=== PATIENT | female | born 1995 | race African-American/Black ===

== ENCOUNTER 2018-05-01 19:51 | Emergency (ER) | payer BC ==
[~2018-05-01] VITALS: Ht 160 cm; Wt 45.4 kg
--- NOTE | ~2018-05-01 | EKG ---
[place] [address] [facility] [place] [address] ELECTROCARDIOGRAM REPORT Name: WANDA HARPER Room #: [id number] Admission: 05/01/18 Attend Phys: Discharge: Date of : [birth year] Report #: [id number] THIS REPORT FOR: //name// [facility] ED Test Date: 2018-05-01 Test Time: 20:19:16 Pat Name: WANDA AMBROCIO Department: Room: Gender: F Combiner: María HESS : 1995 Requested By: Kira Lora Order Number: [id number] MD: Sudheer Matthews Measurements Intervals Gary Rate: 84 P: 86 IA: 152 QRS: 67 QRSD: 73 T: 0 QT: 329 QTc: 389 Interpretive Statements Sinus rhythm Borderline T wave abnormalities Compared to ECG 12/30/2016 17:00:05 T-wave abnormality now present Electronically Signed On 05-02-2018 14:30:31 CDT by Sudheer Matthews [email or web address] <ELECTRONICALLY SIGNED> By: Sudheer Matthews MD 05/02/18 1430 2019 18 Sudheer Matthews MD /JULIO CESAR
[~2018-05-01 19:51] MED LIST: NOHOMEMEDICATIONS; PEPCID40 MG PO; TRAMADOL 50 MG50 MG PO; ZOFRAN ODT4 MG DISSOLVE
[2018-05-01 20:55] LABS: URINE BLOOD NEGATIVE (Negative); URINE CLARITY CLEAR; URINE COLOR YELLOW; URINE GLUCOSE-RANDOM* NEGATIVE (Negative); URINE KETONES 1+ (Negative); URINE LEUKOCYTES-REFLEX NEGATIVE (Negative); URINE NITRITE-REFLEX NEGATIVE (Negative); URINE PROTEIN (DIPSTICK) TRACE (Negative); URINE SPECIFIC GRAVITY >= 1.030 (1.005-1.035); URINE UROBILINOGEN 0.2 E.U./dl (0.2-1.0)
[2018-05-01 20:59] LABS: ICTOTEST (BILI CONFIRMATORY) Negative (Negative); URINE BILIRUBIN NEGATIVE (Negative)
[2018-05-01 21:04] LABS: AMP/METHAMP Negative (Negative); BARBITURATES Negative (Negative); BENZODIAZEPINES Negative (Negative); COCAINE Negative (Negative); METHADONE Negative (Negative); OPIATES Negative (Negative); PCP Negative (Negative)
[2018-05-01 22:24] LABS: ABSOLUTE NEUTROPHILS 4.7 thou/uL (1.4-8.2); BASOPHILS 0.4 % (0.0-2.0); EOSINOPHILS 0.8 % (0.0-3.0); HEMATOCRIT 40.8 % (37.0-47.0); LYMPHOCYTES 17.5 % (24.0-44.0); MCH 31.5 pg (26.0-34.0); MCHC 34.3 g/dL (28.0-37.0); MCV 91.8 fL (80.0-100.0); MONOCYTES 8.6 % (1.0-8.0); PLATELET COUNT 156 thou/uL (150-400); POLYS 72.7 % (36.0-66.0); RBC 4.45 mil/uL (4.20-5.00); RDW 12.5 % (10.5-14.5); WBC 6.5 thou/uL (4.0-11.0)
[2018-05-01 22:34] LABS: CALCIUM 9.3 mg/dL (8.5-10.1); CREATININE 0.8 mg/dL (0.6-1.0); POTASSIUM 3.8 mmol/L (3.5-5.1)
[2018-05-01 22:40] LABS: ALBUMIN 4.4 g/dL (3.4-5.0); TOTAL BILIRUBIN 0.4 mg/dL (<0.1-1.0); TOTAL PROTEIN 8.2 g/dL (6.4-8.2)
[2018-05-01 23:50] VITALS: BP 126/80
== END 2018-05-02 06:58 | disposition home or self-care (01) ==
LOC: ER 19:51
PROVIDERS: Nurse Practitioner Family
DX: B34.9 Viral infection, unspecified (principal); R55 Syncope and collapse; Z88.8 Allergy status to other drugs, medicaments and biological substances